=== PATIENT | male | born 1960 | race Caucasian/White ===

== ENCOUNTER → 2017-11-10 | Outpatient (CLI) | payer MEDICARE ==
[~2017-11-10] MED LIST: ATORVASTATIN CA10 MG PO; LEVOTHYROXINE100 MC1 PO; LEVOTHYROXINE100 MCG PO
--- NOTE | 2017-11-10 14:38 | Diagnostic Imaging Report ---
PROCEDURE:US RETROPERITONEAL ( KIDNEY ). COMPARISON:CT abdomen pelvis 05/08/2016. INDICATIONS:uti/ gross hematuria TECHNIQUE: Rinaldi-scale and color sonographic images of the bilateral kidneys and bladder where obtained in transverse and longitudinal planes. FINDINGS: RIGHT KIDNEY: 9.5 x 4.7 x 3.7 cm, cortex 1.6 cm Cysts: None. Solid masses: None. Stones: None. Hydronephrosis: Mild pelviectasis. Echogenicity: Normal. LEFT KIDNEY: 9.8 x 5.0 x 3.7 cm, cortex 1.4 cm Cysts: None. Solid masses: None. Stones: None. Hydronephrosis: Mild pelviectasis. Echogenicity: Normal. Bladder: Distended. Otherwise normal. Bilateral ureteral jets are not visualized. Prostate: 3.4 x 2.4 x 3.1 cm. 13 mL. CONCLUSION: Mild bilateral renal pelviectasis. Otherwise unremarkable kidneys. Dictated by: Ricki Cifuentes M.D. on 11/10/2017 at 14:42 Electronically approved by: Ricki Cifuentes M.D. on 11/10/2017 at 14:42
== END ==
LOC: US 12:07
PROVIDERS: ATTEND Urology
DX: N39.0 Urinary tract infection, site not specified (principal); R31.0 Gross hematuria
CPT/HCPCS: 76770

== ENCOUNTER → 2018-09-24 | Outpatient (CLI) | payer MEDICARE ==
[~2018-09-24] MED LIST changes: +IOPAMIDOL 370 MG/ML 200 ML INFUS..BTL INJ ONE; +SODIUM CHLORIDE 0.9% 50ML 50 ML ONE
--- NOTE | 2018-09-24 16:33 | Diagnostic Imaging Report ---
EXAM: CT Abdomen WITH contrast INDICATION: Abnormal LFTs. COMPARISON: Report from CT pelvis dated 03/02/2016, although the images are not available for review. TECHNIQUE: Abdomen was scanned utilizing a multidetector helical scanner from the lung base to the iliac crest after administration of IV contrast. Coronal and sagittal reformations were obtained. Routine protocol was performed. Scan was performed when during portal venous phase. IV CONTRAST: 100 cc of Isovue-370. ORAL CONTRAST: Water RADIATION DOSE: Total DLP: 440.6 mGy*cm Dose modulation, iterative reconstruction, and/or weight based adjustment of the mA/kV was utilized to reduce the radiation dose to as low as reasonably achievable. COMPLICATIONS: None FINDINGS: LINES and TUBES: None. LOWER THORAX: Small pericardial effusion. Bilateral fat-containing Bochdalek hernias. HEPATOBILIARY: Mild hepatic steatosis. The liver appears mildly atrophic without evidence of nodular contour. No focal hepatic lesions. No biliary ductal dilation. GALLBLADDER: No radio-opaque stones or sludge. No wall thickening. SPLEEN: No splenomegaly. PANCREAS: No focal masses or ductal dilatation. ADRENALS: No adrenal nodules KIDNEYS/URETERS: Kidneys enhance symmetrically. No hydronephrosis. No cystic or solid mass lesions. No stones. GI TRACT: No evidence of bowel obstruction. There is a colonic anastomosis in the left lower abdomen. Apparent mild thickening of the ascending colon, likely reflecting decompression. No significant surrounding inflammatory changes. LYMPH NODES: No lymphadenopathy. VESSELS: There is a prominent left splenorenal varix. The portal vein appears patent. PERITONEUM / RETROPERITONEUM: No free air or fluid. BONES: No acute osseous abnormality. Old healed left lateral seventh through ninth rib fractures. Degenerative changes of the lumbar spine. Posterior disc herniation at L1-L2 results in mild central canal narrowing. SOFT TISSUES: Postsurgical changes in the anterior midline abdomen. IMPRESSION: Hepatic steatosis. The liver appears mildly atrophic without evidence of nodular contour. Right upper quadrant ultrasound may be considered to evaluate for cirrhotic morphology. Left-sided splenorenal shunt. This may represent portal hypertension and can be correlated clinically. Apparent mild thickening of the ascending colon is likely secondary to decompression rather than colitis. Small pericardial effusion. Signed by: Dr. Lory Dove MD on 09/24/2018 4:29 PM
== END ==
LOC: CT 11:14
PROVIDERS: ATTEND Family Medicine
DX: R74.8 Abnormal levels of other serum enzymes (principal); R94.5 Abnormal results of liver function studies
CPT/HCPCS: 74160; Q9967

== ENCOUNTER 2018-10-07 08:55 | Inpatient (IN) | payer MEDICARE ==
[~2018-10-07] VITALS: Ht 154.9 cm; Wt 77.1 kg
[~2018-10-07 08:55] MED LIST changes: -IOPAMIDOL 370 MG/ML 200 ML INFUS..BTL INJ ONE; -SODIUM CHLORIDE 0.9% 50ML 50 ML ONE
--- OUTSIDE RECORDS SUMMARY | 2018-10-07 09:06 | XMS REPORT ---
Author [facility] Address Unknown Phone Unavailable Care Team Providers Care Outbound Sales Consultant Name Role Phone Milad BOBBY Unavailable Unavailable HAMPEL, NEHEMIA Unavailable Unavailable Payers Payer Name Policy Type Policy Number Effective Date Expiration Date Problems This patient has no known problems. Allergies, Adverse Reactions, Alerts Allergy Name Allergy Type Status Severity Reaction(s) Onset Date Inactive Date Treating Clinician Comments gabapentin DA Active SV 2017-11-12 00:00:00 Medications This patient has no known medications. Results Test Description Test Time Test Comments Text Results Atomic Results Result Comments CT ABDOMEN W 2018-09-24 16:14:00 [place] [address] Patient Name: JUSTINO MATAMOROS MR #: [id number] : 1960 Age/Sex: 58/M Req #: [id number] Adm Physician: Ordered by: LEANDRO BOBBY MD Report #: [id number] Location: CT Room/Bed: Procedure: [id number] CT/CT ABDOMEN W Exam Date: 09/24/18 Exam Time: 1240 REPORT STATUS: Signed EXAM: CT Abdomen WITH contrast INDICATION: Abnormal L FTs. COMPARISON: Report from CT pelvis dated 03/02/2016, although the images are not available for review. TECHNIQUE: Abdomen was scanned utilizing a multidetector helical scanner from the lung base to the iliac crest after administration of IV contrast. Coronal and sagittal reformations were obtained. Routine protocol was performed. Scan was performed when during portal venous phase. IV CONTRAST: 100 cc of Isovue-370. ORAL CONTRAST: Water RADIATION DOSE: Total DLP: 440.6 mGy*cm Dose modulation, iterative reconstruction, and/or weight based adjustment of the mA/kV was utilized to reduce the radiation dose to as low as reasonably achievable. COMPLICATIONS: None FINDINGS: LINES and TUBES: None. LOWER THORAX: Small pericardial effusion. Bilateral fat-containing Bochdalek hernias. HEPATOBILIARY: Mild hepatic steatosis. The liver appears mildly atrophic without evidence of nodular contour. No focal hepatic lesions. No biliary ductal dilation. GALLBLADDER: No radio-opaque stones or sludge. No wall thickening. SPLEEN: No splenomegaly. PANCREAS: No focal masses or ductal dilatation. ADRENALS: No adrenal nodules KIDNEYS/URETERS: Kidneys enhance symmetrically. No hydronephrosis. No cystic or solid mass lesions. No stones. GI TRACT: No evidence of bowel obstruction. There is a colonic anastomosis in the left lower abdomen. Apparent mild thickening of the ascending colon, likely reflecting decompression. No significant surrounding i nflammatory changes. LYMPH NODES: No lymphadenopathy. VESSELS: There is a prominent left splenorenal varix. The portal vein appears patent. PERITONEUM / RETROPERITONEUM: No free air or fluid. BONES: No acute osseous abnormality. Old healed left lateral seventh through ninth rib fractures. Degenerative changes of the lumbar spine. Posterior disc herniation at L1-L2 results in mild central canal narrowing. SOFT TISSUES: Postsurgical changes in the anterior midline abdomen. IMPRESSION: Hepatic steatosis. The liver appears mildly atrophic without evidence of nodular contour. Right upper quadrant ultrasound may be considered to evaluate for cirrhotic morphology. Left-sided splenorenal shunt. This may represent portal hypertension and can be correlated clinically. Apparent mild thickening of the ascending colon is likely secondary to decompression rather than colitis. Small pericardial effusion. Signed by: Dr. Hermann Jara MD on 09/24/2018 4:29 PM Dictated By: HERMANN JARA MD 162 Transcribed By: STEPHANIE on 09/24/181628 COPY TO: LEANDRO BOBBY MD URINALYSIS COMPLETE 2018-08-23 20:47:00 UA COLOR (test code=COLU) YELLOW YELLOW UA APPEARANCE (test code=APPU) CLEAR CLEAR UA GLUCOSE DIPSTICK (test code=DGLUU) NORMAL mg/dL NEGATIVE UA BILIRUBIN DIPSTICK (test code=BILU) NEGATIVE mg/dL NEGATIVE UA KETONE DIPSTICK (test code=KETU) neg mg/dL NEGATIVE UA SPECIFIC GRAVITY (test code=SGU) 1.015 1.001-1.035 UA BLOOD DIPSTICK (test code=ALEJANDRINA) 10 (Trace) Orion/uL NEGATIVE UA PH DIPSTICK (test code=TABATHA) 6.5 5.0-8.0 UA PROTEIN DIPSTICK (test code=PROU) neg mg/dL Neg-15 UA UROBILINIOGEN DIPSTICK (test code=URO) norm mg/dL 0.0-0.2 UA NITRITE DIPSTICK (test code=LOUISA) NEGATIVE NEGATIVE UA LEUKOCYTE ESTERASE DIPSTICK (test code=LEUU) NEGATIVE uL NEGATIVE UA WBC (test code=WBCU) NONE SEEN per HPF 0-5 IN SOME URINARY TRACT INFECTIONS THERE MAY NOT BE ENOUGHWBCs IN THE URINE TO TRIGGER AN AUTOMATIC (REFLEX) URINECULTURE. A SEPERATE ORDER FOR URINE CULTURE IS RECOMMENDEDIF THERE IS STRONG SUPPORT FOR A URINARY TRACT INFECTIONCLINICALLY. UA RBC (test code=RBCU) 0-2 per HPF 0-5 UA EPITHELIAL CELLS (test code=EPIU) Rare (0-1/hpf) per HPF Few UA BACTERIA (test code=BACU) TRACE per HPF NONE Urine Source? Clean CatchDRUGS OF ABUSE SCREEN [id number] 20:47:00* Test Item Value Reference Range Comments URN COCAINE (test code=COCAURN) NEGATIVE NEGATIVE URN CANNABINOIDS (test code=CANNABURN) NEGATIVE NEGATIVE URN AMPHETAMINE (test code=AMPHETURN) NEGATIVE NEGATIVE URN BARBITURATE (test code=BARBITURN) NEGATIVE NEGATIVE URN BENZODIAZEPINE (test code=BENZOURN) NEGATIVE NEGATIVE URN OPIATES (test code=OPIATURN) NEGATIVE NEGATIVE URN PHENCYCLIDINE (PCP) (test code=PHENCURN) NEGATIVE NEGATIVE Urine Source? Clean CatchURINALYSIS [id number] 20:44:00* Test Item Value Reference Range Comments UA COLOR (test code=COLU) YELLOW YELLOW UA APPEARANCE (test code=APPU) CLEAR CLEAR UA GLUCOSE DIPSTICK (test code=DGLUU) NORMAL mg/dL NEGATIVE UA BILIRUBIN DIPSTICK (test code=BILU) NEGATIVE mg/dL NEGATIVE UA KETONE DIPSTICK (test code=KETU) neg mg/dL NEGATIVE UA SPECIFIC GRAVITY (test code=SGU) 1.015 1.001-1.035 UA BLOOD DIPSTICK (test code=ALEJANDRINA) 10 (Trace) Orion/uL NEGATIVE UA PH DIPSTICK (test code=TABATHA) 6.5 5.0-8.0 UA PROTEIN DIPSTICK (test code=PROU) neg mg/dL Neg-15 UA UROBILINIOGEN DIPSTICK (test code=URO) norm mg/dL 0.0-0.2 UA NITRITE DIPSTICK (test code=LOUISA) NEGATIVE NEGATIVE UA LEUKOCYTE ESTERASE DIPSTICK (test code=LEUU) NEGATIVE uL NEGATIVE UA WBC (test code=WBCU) NONE SEEN per HPF 0-5 IN SOME URINARY TRACT INFECTIONS THERE MAY NOT BE ENOUGHWBCs IN THE URINE TO TRIGGER AN AUTOMATIC (REFLEX) URINECULTURE. A SEPERATE ORDER FOR URINE CULTURE IS RECOMMENDEDIF THERE IS STRONG SUPPORT FOR A URINARY TRACT INFECTIONCLINICALLY. UA RBC (test code=RBCU) 0-2 per HPF 0-5 UA EPITHELIAL CELLS (test code=EPIU) Rare (0-1/hpf) per HPF Few UA BACTERIA (test code=BACU) TRACE per HPF NONE Urine Source? Clean CatchDRUGS OF ABUSE SCREEN [id number] 20:44:00* Test Item Value Reference Range Comments URN COCAINE (test code=COCAURN) NEGATIVE URN CANNABINOIDS (test code=CANNABURN) NEGATIVE URN AMPHETAMINE (test code=AMPHETURN) NEGATIVE URN BARBITURATE (test code=BARBITURN) NEGATIVE URN BENZODIAZEPINE (test code=BENZOURN) NEGATIVE URN OPIATES (test code=OPIATURN) NEGATIVE URN PHENCYCLIDINE (PCP) (test code=PHENCURN) NEGATIVE Urine Source? Clean Catch- CT HEAD/BRAIN W/O [id number] 20:22:00 Name: JUSTINO MATAMOROS [facility] [place] : 1960 Age/S: 58 / M [address] [facility] Unit #: [id number] Loc: [place] [address] Phys: Sil De La O MD Acct: [id number] Di s Date: Status: REG ER PHONE #: Exam Date: 08/23/2018 193 FAX #: Reason: altered mentation EXAMS: CPT CODE: [id number] CT HEAD/BRAIN W/O CONT [id number] REASON FOR EXAM: altered mentation EXAM ORDER DATE: 08/23/2018 6:48 PM Ordering MOnesimo: Ruth De La O MD PROCEDURE: - CT HEAD/BRAIN W/O CONT COMPARISON: 12/18/2015 FINDINGS: CT images of the brain were obtained without IV contrast. Dose modulation, iterative r econstruction, and/or weight based adjustment of the MA/KV was utilized to reduce the radiation dose to as low as reasonably achievable. Mild patchy low densities appearance of the paraventricular region noted consistent with nonspecific white matter disease. The mckeon-white matter delineation is unremarkable. The ventricles, cisterns, and sulci are mild ly prominent. There is no evidence of hemorrhage, mass, mass effect. Ther e is no evidence of acute infarct. The calvarium is intact. IMPRESSION: Nonspecific deep white matter disease. Mild advanced gene ralized atrophy for age. 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 No acute findings Dania ctronically Signed by Radha Meneses on 08/23/2018 at 2021 Reported and signed by: Chavo Meneses M.D. CC: Ruth De La O MD; Leandro Gomez MD Technologist:JULIA OSPINA RT(R),RDMS,CT CTDI: DLP: Trnscb Date/Time: 08/23/2018 (2021) RobVTL Orig Print D/T: S: 08/23/2018 (2024) CTDI: DLP: PAGE 1 Signed Report - XR CHEST 1 [id number] 20:06:00 Name: JUSTINO MATAMOROS [facility] : 1960 Age/S:58 /M [address] [facility] Unit#:[id number] Loc: [place] [address] Phys: Pete Torres MD Dis Date: PHONE #: [phone] Status: REG ER FAX #: [phone] Exam Date: 08/23/2018 Reason: Altered mental status EXAMS: CPT CODE: [id number] XR CHEST 1 V [id number] REASON FOR EXAM: Altered mental status EXAM ORDER DATE: 08/23/2018 7:37 PM Ordering M.Dean: Pete Torres MD PROCEDURE: - XR CHEST 1 V COMPARISON: FINDINGS: Portable AP frontal view of the chest obtained at 7:44 PM shows patchy airspace opacity at the left base. There is no evidence of effusion. The heart size is minimally enlarged. Pulmonary vasculatures are minimally congested. IMPRESSION: Patchy atelectasis of the left base at 2005 Reported and signed by: Chavo Meneses M.D. CC: Pete Torres MD; Leandro Bobby MD Technologist: JULIA OSPINA RT(R),RDMS,CT Trnscrpt Data: 08/23/2018 (2005) tFINESSEVTL Orig Print D/T: S: 08/23/2018 (2008) PAGE 1 Signed Report COMPREHENSIVE METABOLIC [id number] 19:23:00* Test Item Value Reference Range Comments SODIUM (test code=NA) 148 mmol/L 135-148 POTASSIUM (test code=K) 4.3 mmol/L 3.5-5.1 CHLORIDE (test code=CL) 109 mmol/L 101-109 CARBON DIOXIDE (test code=CO2) 29.5 mmol/L 21-32 ANION GAP (test code=GAP) 14 mmol/L 10-20 GLUCOSE (test code=GLU) 102 mg/dL 74-106 BLOOD UREA NITROGEN (test code=BUN) 14 mg/dL 3-21 CREATININE (test code=CREAT) 1.26 mg/dL 0.55-1.3 BUN/CREATININE RATIO (test code=BUN/CREA) 11.1 10-20 TOTAL PROTEIN (test code=PROT) 7.0 g/dL 6.5-8.4 ALBUMIN (test code=ALB) 2.9 g/dL 3.4-4.8 GLOBULIN (test code=GLOB) 4.1 G/DL 1-10 ALBUMIN/GLOBULIN RATIO (test code=A/G) 0.7 RATIO 0.75-1.50 CALCIUM (test code=CA) 8.4 mg/dL 8.4-10.2 BILIRUBIN TOTAL (test code=BILT) 0.60 mg/dL 0.0-1.0 SGOT/AST (test code=AST) 40 U/L 6-32 SGPT/ALT (test code=ALT) 33 U/L 12-78 Note: Change in REFERENCE RANGE due to new reagent method. ALKALINE PHOSPHATASE TOTAL (test code=ALKP) 140 U/L 38-126 [id number] 19:23:00* Test Item Value Reference Range Comments MAGNESIUM (test code=MAG) 2.2 mg/dL 1.6-2.3 [id number] 19:23:00* Test Item Value Reference Range Comments ALCOHOL (test code=ALC) 3 mg/dL 0.0-3.0 INTERPRETIVE DATA NOTE: POSITIVE SCREENING RESULTS SHOULD BE CONSIDERED PRESUMPTIVE.WHEN COLLECTED FOR MEDICAL PURPOSES ONLY. SPECIMEN WILL NOTBE COLLECTED BY CHAIN OF CUSTODY.IF A CONFIRMATION OF POSITIVE RESULTS IS DESIRED, ACONFIRMATION TEST MUST BE REQUESTED BY THE PHYSICIAN AT ANADDITIONAL CHARGE TO THE PATIENT. COMPREHENSIVE METABOLIC [id number] 19:20:00* Test Item Value Reference Range Comments SODIUM (test code=NA) 148 mmol/L 135-148 POTASSIUM (test code=K) 4.3 mmol/L 3.5-5.1 CHLORIDE (test code=CL) 109 mmol/L 101-109 CARBON DIOXIDE (test code=CO2) 29.5 mmol/L 21-32 ANION GAP (test code=GAP) 14 mmol/L 10-20 GLUCOSE (test code=GLU) 102 mg/dL 74-106 BLOOD UREA NITROGEN (test code=BUN) 14 mg/dL 3-21 CREATININE (test code=CREAT) 1.26 mg/dL 0.55-1.3 BUN/CREATININE RATIO (test code=BUN/CREA) 11.1 10-20 TOTAL PROTEIN (test code=PROT) gram/dL 6.4-8.2 ALBUMIN (test code=ALB) g/dL 3.4-5.0 GLOBULIN (test code=GLOB) g/dL 2.7-4.2 ALBUMIN/GLOBULIN RATIO (test code=A/G) 0.75-1.50 CALCIUM (test code=CA) 8.4 mg/dL 8.4-10.2 BILIRUBIN TOTAL (test code=BILT) mg/dL 0.2-1.2 SGOT/AST (test code=AST) IUnit/L 15-37 SGPT/ALT (test code=ALT) U/L 10-69 ALKALINE PHOSPHATASE TOTAL (test code=ALKP) IUnit/L 45-117 [id number] 19:20:00* Test Item Value Reference Range Comments MAGNESIUM (test code=MAG) mg/dL 1.8-2.4 [id number] 19:20:00* Test Item Value Reference Range Comments ALCOHOL (test code=ALC) mg/dL 0.0-3.0 CBC W/AUTO [id number] 19:08:00* Test Item Value Reference Range Comments WHITE BLOOD CELL (test code=WBC) 7.6 K/mm3 4.5-12.5 RED BLOOD CELL (test code=RBC) 4.94 mill/mm3 4.0-5.8 HEMOGLOBIN (test code=HGB) 15.9 gram/dL 13.0-17.5 HEMATOCRIT (test code=HCT) 46.3 % 42.0-52.0 MEAN CELL VOLUME (test code=MCV) 93.7 fL 80-98 MEAN CELL HGB (test code=MCH) 32.2 picogram 27.0-33.0 MEAN CELL HGB CONCETRATION (test code=MCHC) 34.3 gram/dL 33.0-36.0 RED CELL DISTRIBUTION WIDTH (test code=RDW) 14.9 % 11.6-16.2 RED CELL DISTRIBUTION WIDTH SD (test code=RDW-SD) 50.1 fL 39.2-49.5 PLATELET COUNT (test code=PLT) 147 K/mm3 150-450 MEAN PLATELET VOLUME (test code=MPV) 9.8 fL 6.7-11.0 NEUTROPHIL % (test code=NT%) 59.1 % 39.0-69.0 LYMPHOCYTE % (test code=LY%) 30.4 % 25.0-55.0 MONOCYTE % (test code=MO%) 8.6 % 0.0-10.0 EOSINOPHIL % (test code=EO%) 0.7 % 0.0-5.0 BASOPHIL % (test code=BA%) 1.2 % 0.0-1.0 NEUTROPHIL # (test code=NT#) 4.48 K/mm3 1.8-7.7 LYMPHOCYTE # (test code=LY#) 2.30 K/mm3 1.0-5.0 MONOCYTE # (test code=MO#) 0.65 K/mm3 0-0.8 EOSINOPHIL # (test code=EO#) 0.05 K/mm3 0.0-0.5 BASOPHIL # (test code=BA#) 0.09 K/mm3 0.0-0.2 MANUAL DIFF REQUIRED (test code=MDIFF) NO US RENAL RETROPERITONEAL COMP [place] [address] Patient Name: JUSTINO MATAMOROS MR #: [id number] : 1960 Age/Sex: 57/M Req #: [id number] Adm Physician: Ordered by: PANKAJ SARGENT MD Report #: [id number] Location: US Room/Bed: Procedure: [id number] US/US RENAL RETROPERITONEAL CO MP Exam Date: Exam Time: REPORT STATUS: Sign ed PROCEDURE: US RETROPERITONEAL ( KIDNEY ). COMPARISON: CT abdomen pel vis 05/08/2016. INDICATIONS: uti/ gross hematuria TECHNIQUE: Rinaldi-scale an d color sonographic images of the bilateral kidneys and bladder where obtaine d in transverse and longitudinal planes. FINDINGS: RIGHT KIDNE Y: 9.5 x 4.7 x 3.7 cm, cortex 1.6 cm Cysts: None. Solid masses: None. Ston es: None. Hydronephrosis: Mild pelviectasis. Echogenicity: Normal. LEF T KIDNEY: 9.8 x 5.0 x 3.7 cm, cortex 1.4 cm Cysts: None. Solid masses: None . Stones: None. Hydronephrosis: Mild pelviectasis. Echogenicity: Normal. Bladder: Distended. Otherwise normal. Bilateral ureteral jets are not visualized. Prostate: 3.4 x 2.4 x 3.1 cm. 13 mL. CONCLUSION: M ild bilateral renal pelviectasis. Otherwise unremarkable kidneys. Dictate d by: Ricki Osborne M.D. on 11/10/2017 at 14:42 Electronically approved by: Brody Osborne M.D. on 11/10/2017 at 14:42 Dictated By: RICKI OSBORNE MD Elect ronically Signed By: RICKI OSBORNE MD on 11/10/17 1442 Transcribed By: ADORE on 11/10 1442 COPY TO: PANKAJ SARGENT MD
--- OUTSIDE RECORDS SUMMARY | 2018-10-07 09:06 | XMS REPORT | Continuity of Care Document ---
Author Author [facility] Interface Address Unknown Phone Unavailable Problems Problem Status Onset Date Classification Date Reported Comments Source Medications Medication Details Route Status Patient Instructions Ordering Provider Order Date Source Allergies, Adverse Reactions, Alerts Substance Category Reaction Severity Reaction type Status Date Reported Comments Source Immunizations Immunization Date Given Site Status Last Updated Comments Source Results Order Name Results Value Reference Range Date Interpretation Comments Source Vital Signs Vital Sign Value Date Comments Source Encounters Location Location Details Encounter Type Encounter Number Reason For Visit Attending Provider ADM Date DC Date Status Source Outpatient [id number] [facility] 10/22/2016 Active [facility] [place] Procedures Procedure Code Date Perfomer Comments Source
[2018-10-07] MEDS ORDERED: CEFAZOLIN SOD 1 GM/NS 50ML 50 ML IV ONE (09:19)
[2018-10-07] MEDS ORDERED: DONEPEZIL HCL10 MG PO (09:32)
[2018-10-07] MEDS ORDERED: BUPIVACAINE HCL 0.5% INJ 30 ML VIAL INJ ONE (10:27)
[2018-10-07] MEDS ORDERED: IOPAMIDOL 610MG/1ML 300 MG/ML VIAL IV ONE (10:27)
[2018-10-07] MEDS ORDERED: BACITRACIN ZINC 15 GM OINT ONE (12:32)
[2018-10-07] MEDS: D5.45%NS/KCL 20MEQ 1,000 ML IV SCH ×2 (12:46→20:46)
[2018-10-07] MEDS ORDERED: DIPHENHYDRAMINE HCL 25 MG CAP PO PRN (13:00)
[2018-10-07] MEDS ORDERED: MORPHINE SULFATE 1 MG/ML 30ML PCA IV PRN (13:00)
[2018-10-07] MEDS ORDERED: NALOXONE HCL INJ 0.4 MG/ML AMP IV PRN (13:00)
[2018-10-07] MEDS ORDERED: ONDANSETRON HCL INJ 2MG/ML 2ML 2 MG/ML VIAL IV PRN (13:00)
[2018-10-07] MEDS ORDERED: MORPHINE SULFATE 1 MG/ML 30ML PCA ONE (13:43)
[2018-10-07] MEDS ORDERED: HYDROMORPHONE 2MG/ML 2 MG/ML ML ONE (14:11)
[2018-10-07] MEDS ORDERED: FENTANYL CITRATE/PF 100MCG/2 ML INJ ONE ×2 (14:41→19:14)
[2018-10-07 17:54] VITALS: BP 115/74
[2018-10-07] MEDS: CEFAZOLIN SOD 1 GM/NS 50ML 50 ML IV SCH (18:51)
[2018-10-07] MEDS: DOCUSATE SODIUM 100 MG CAP PO SCH (18:51)
[2018-10-07 19:27] VITALS: BP 115/74
[2018-10-07 19:34] VITALS: BP 115/74
[2018-10-07 20:00] VITALS: BP 158/65
--- NOTE | 2018-10-07 23:00 | NUR ---
Penile/scrotum dressing was noted to be saturated. Old dressing removed and new dressing was placed.
[2018-10-08] VITALS (10 sets, daily range): BP systolic 100–123; BP diastolic 51–74
--- NOTE | 2018-10-08 01:37 | Operative Report ---
DATE OF PROCEDURE: 10/07/2018 SURGEON: Mj Glover MD SERVICE: Urology. DIAGNOSES: 1. Urethral stricture. 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 3. Down syndrome. 4. Urinary tract infection. OPERATIONS PERFORMED: 1. Retrograde urethrogram under fluoroscopic control. 2. Cystoscopy and urethral dilation. 3. Bilateral retrograde pyelograms under fluoroscopic control. All this is not related to the diagnosis of the buried penis. 4. Interpretation of x-ray, radiologist was present. 5. Supervision of fluoroscopy, radiologist was present. 6. Complete reconstruction of the penile skin involving the complete dissection and removal of old scar tissue surrounding the penis. Dissecting was done all the way up to the suspensory ligament of the penis. Following this, flaps of scrotal tissue were used to create the necessary skin to cover the penis completely. DESK CLERK: Dr. Diogo Glover. TYPE OF ANESTHESIA: General. CLINICAL INDICATION: This is a 58-year-old Down syndrome patient, who had a completely buried penis following previous dissection. The patient was brought for reconstruction of the penile skin using grafts as well as treatment of the urethral stricture. Procedure was discussed with his parents. Potential benefits and complications were discussed, explained and accepted. Family are aware that the patient will be admitted following the procedure. DESCRIPTION OF PROCEDURE AND FINDINGS: After appropriate level of anesthesia was achieved, the patient was placed in lithotomy position, prepped and draped in a sterile fashion. A 16-Bahraini Landa catheter was inserted through the tip of the penis and retrograde urethrogram was demonstrating some narrow segment. Urethra was then dilated to 24-Bahraini. Cystoscopy was done. Urethra now is patent. Bladder mucosa is minimally trabeculated. Both ureteral orifices were in normal position. Cone-tip catheter was used. Retrograde pyelogram demonstrating a completely normal upper tract bilaterally. Following this, the patient was re-prepped and draped. The Landa catheter was inserted into the bladder with a 16-Bahraini, 10 cc. Skin flaps were then marked with a marking pen on the wall of the scrotum. The head of the penis which is quite small was controlled by putting the 3-0 silk suture through the glans for traction. The glans penis of note is extremely small, and also adherent to the surrounding tissue. The head of the penis was then dissected free and the premarked flaps were incised. Following this, old adhesion tissue was attached to the shaft of the penis were carefully coagulated and dissected completely free. The penis was then completely stripped for any adhesion to it and this was extended all the way to the symphysis pubis. Following this, the flaps of skin that were prepared for the covering of the penis where it was sutured using 4-0 interrupted chromic catgut. The midline was sutured 1st, any excess skin and any corners of skin were excised. The skin was completely surrounded loosely and nicely and the shaft of the penis. The base of the penis was reattached to the skin with additional stitch of 3-0 chromic catgut. A stitch of 3-0 chromic catgut was also used to anchor the base of the penis to the reconstructed skin. The line of incision of the skin was closed to the midline in the ventral area. Interrupted sutures of vertical mattresses were used in between then the running suture of 4-0 chromic catgut. A quarter-inch [place] drain was brought through a separate stab incision. Near the right-side of the scrotum and advanced along the reconstructive skin of the penis. After completing the suturing, very nicely recreated penile skin was present. The bacitracin ointment was applied on all the incisions, the vertical incision and the scrotum was closed with 3-0 chromic interrupted and running sutures. After putting the bacitracin ointment, the Telfa was placed on the sutures and then dressing was applied. Coban dressing was then applied to the penis and Tegaderm to the rest of the incisions. Mesh underwear was placed and the pads were added to the perineal area. The patient tolerated the procedure very well. Estimated blood loss practically none. He was transferred in satisfactory condition to recovery room, and will be admitted for further treatment. MD RAFI Quintero/MODL /[id number]
[2018-10-08] MEDS: CEFAZOLIN SOD 1 GM/NS 50ML 50 ML IV SCH ×3 (02:43→18:53)
[2018-10-08] MEDS: D5.45%NS/KCL 20MEQ 1,000 ML IV SCH ×3 (04:46→20:40)
--- NOTE | 2018-10-08 05:08 | Consultation ---
DATE OF CONSULTATION: REASON FOR CONSULTATION: Postop medical management. HISTORY OF PRESENT ILLNESS: This patient is a 58-year-old gentleman with history of Down syndrome, who is status post venous repair, who has some evidence of abdominal pain, but otherwise appears to be doing well. PAST MEDICAL HISTORY: Down syndrome, hypothyroidism, cognitive dysfunction, and hyperlipidemia. MEDICATIONS: See MAR. ALLERGIES: NONE. SOCIAL HISTORY: Nonsmoker and nondrinker. FAMILY HISTORY: Hypertension. PHYSICAL EXAMINATION: VITAL SIGNS: Temperature 97.6, pulse 86, blood pressure 123/74, and sats 95%. GENERAL: He is in no apparent distress, lying in bed. NECK: Supple. CARDIOVASCULAR: Regular rate and rhythm. LUNGS: Clear to auscultation bilaterally. ABDOMEN: Good bowel sounds. Soft and nontender. EXTREMITIES: No clubbing or cyanosis. NEUROLOGICAL: Nonfocal. ASSESSMENT AND PLAN: 1. Abdominal pain. We will continue with his PUBLIC [employer]ATIONS pump. 2. Hypothyroidism. We will continue with his medication. 3. Hyperlipidemia. We will continue with his medication. 4. Cognitive dysfunction. We will also continue with his Aricept at discharge. Please see hospital chart for full details. MD RAQUEL Agarwal/ZAINAB /[id number]
[2018-10-08 05:53] LABS: BASOPHILS % 0.2 % (0.0-1.0); EOSINOPHILS # (AUTO) 0.1 (0.0-0.4); EOSINOPHILS % 1.5 % (0.0-6.0); HEMATOCRIT 38.9 % (38.2-49.6); HEMOGLOBIN 13.5 g/dL (14.0-18.0); LYMPHOCYTES # (AUTO) 1.4 (1.0-3.2); LYMPHOCYTES % 15.2 % (18.0-39.1); MEAN CORPUSCULAR HEMOGLOBIN 32.1 pg (28-32); MEAN CORPUSCULAR HGB CONC 34.7 g/dL (31-35); MEAN CORPUSCULAR VOLUME 92.4 fL (81-99); MONOCYTES # (AUTO) 0.6 (0.2-0.8); NEUTROPHILS % 76.8 % (38.7-80.0); PLATELET COUNT 151 x10e3/uL (140-360); RED BLOOD COUNT 4.21 x10e6/uL (4.3-5.7); RED CELL DISTRIBUTION WIDTH 14.1 % (11.7-14.4)
--- NOTE | 2018-10-08 06:00 | NUR ---
Penile/scrotum dressing was noted to be saturated. Old dressing was removed, sarina drain and stitches are in place, covered incision site with new 4x4 gauge and secured with tape.
[2018-10-08 06:13] LABS: ANION GAP 10.1 mmol/L (8-16); BLOOD UREA NITROGEN 11 mg/dL (7-26); BUN/CREATININE RATIO 14 (6-25); CALCIUM 8.7 mg/dL (8.4-10.2); CARBON DIOXIDE 28 mmol/L (22-29); CHLORIDE 105 mmol/L (98-107); CREATININE, SERUM 0.78 mg/dL (0.72-1.25); EST GLOMERULAR FILTRATION RATE > 60 ML/MIN (60-); GLUCOSE 92 mg/dL (74-118); POTASSIUM 4.1 mmol/L (3.5-5.1); SODIUM 139 mmol/L (136-145)
[2018-10-08] MEDS ORDERED: ACETAMINOPHEN/CODEINE 300MG - 30MG TAB PO PRN (09:15)
--- NOTE | 2018-10-08 09:20 | NUR ---
New dressing placed at this timer as per Dr. Glover orders. 4x4 gauze placed underneath scrotum, and mesh underwear applied. Old dressing and tape removed. [employer] DC'd per MD orders.
[2018-10-08] MEDS: LEVOTHYROXINE SODIUM 100 MCG TAB PO SCH (09:30)
[2018-10-08] MEDS: ATORVASTATIN 10 MG TAB PO SCH (09:30)
[2018-10-08] MEDS: DOCUSATE SODIUM 100 MG CAP PO SCH ×2 (09:30→18:14)
--- NOTE | 2018-10-08 11:47 | NUR ---
CASE MANAGEMENT ASSESSMENT Swedish Masseuse to bedside to discuss plan of care with patient/family. CM/SW role and care transitions discussed. Anticipated discharge plan discussed along with duration of care. CM/SW discussed patients right to make decisions in care. CM/SW work hours given. Spoke to pt's sister Catherine at bedside. Patient lives: with his sister Catherine Rodriguez Admit/Transfer: from PACU Hospital/ER visits since last admit: 1 visit to urgent care for UTI; was discharged from there with abx POA/Emergency contact: Catherine Rodriguez [phone] (home), (cell) Current/Previous Home Health: previously had [facility]. none currently PCP/Follow-up Care: will follow up with Dr. Glover as instructed on discharge. Current/Previous DME: none Medications (referring to index hospitalization or the first time you were in the hospital) a. Were changes made in your medications when you were in the hospital on [date of index hospitalization]? n/a b. Did you understand the changes? n/a c. Were you able to obtain your new medications right away? n/a d. Were you able to take your medications like the doctor wanted you to? n/a e. Did the hospital give you an accurate, easy to understand list of medications when you left? n/a Scale of 1-10 how comfortable does patient feel with disease management in outpatient settin Other Services: none Employment Status: disabled Areas of Concerns: s/p surgery Referral Needs: none Education Needs: post operative care, medical management IMM/RODRIGUEZ given and signed (if applicable): not at this time Goal for discharge: home; sister will take pt home. CM/SW left business card at the bedside with contact information. Name and number was also written on the patients whiteboard. Patient verbalized understanding of discussion. CM will follow-up with ongoing discharge and transition of care needs.
--- NOTE | 2018-10-08 14:28 | NUR ---
WOUND CARE PUP SCREEN Rafael Score: 13 PUP: Moderate LOS: 13 hr Age: 58 VISCO Mattress HOB < 30 Degrees Patient Position: Back. Able to Turn Self. On SCREED OPERATOR pump. Active in bed. PATIENT VISIT / SKIN CHECK: No Pressure Ulcers Identified. S/p Surgical Intervention of Penis &Scrotum. RECOMMENDATION: - Continue Moderate PUP - Alternating Pressure Air Mattress and set to patient current weight - Bilateral Heel Protectors / Offload Heels with Pillows While in Bed - Turn and Reposition Every 2 Hours Addendum: 10/08/18 at 1429 by Raman Li RN Amended: Links added.
[2018-10-08] MEDS: ACETAMINOPHEN/CODEINE 300MG - 30MG TAB PO PRN (20:22)
[2018-10-09] VITALS (7 sets, daily range): BP systolic 90–138; BP diastolic 50–79
[2018-10-09] MEDS: CEFAZOLIN SOD 1 GM/NS 50ML 50 ML IV SCH ×4 (01:42→17:01)
[2018-10-09] MEDS: ACETAMINOPHEN/CODEINE 300MG - 30MG TAB PO PRN ×2 (01:43→07:42)
[2018-10-09 06:22] LABS: ANION GAP 7.8 mmol/L (8-16); BLOOD UREA NITROGEN 11 mg/dL (7-26); BUN/CREATININE RATIO 15 (6-25); CARBON DIOXIDE 28 mmol/L (22-29); CHLORIDE 106 mmol/L (98-107); CREATININE, SERUM 0.75 mg/dL (0.72-1.25); EST GLOMERULAR FILTRATION RATE > 60 ML/MIN (60-); GLUCOSE 95 mg/dL (74-118); POTASSIUM 3.8 mmol/L (3.5-5.1); SODIUM 138 mmol/L (136-145)
--- NOTE | 2018-10-09 07:10 | NUR ---
received pt lying in bed with eyes pen and TV on. denies pain, sob at this time. call light within reach and instructed to call for assistance.
[2018-10-09] MEDS: D5.45%NS/KCL 20MEQ 1,000 ML IV SCH ×3 (07:43→19:27)
[2018-10-09 08:12] LABS: BASOPHILS # (AUTO) 0.1 (0.0-0.1); BASOPHILS % 1.3 % (0.0-1.0); EOSINOPHILS # (AUTO) 0.1 (0.0-0.4); EOSINOPHILS % 1.3 % (0.0-6.0); HEMATOCRIT 39.1 % (38.2-49.6); HEMOGLOBIN 13.3 g/dL (14.0-18.0); LYMPHOCYTES # (AUTO) 1.3 (1.0-3.2); MEAN CORPUSCULAR HEMOGLOBIN 31.9 pg (28-32); MEAN CORPUSCULAR VOLUME 93.8 fL (81-99); MONOCYTES # (AUTO) 0.5 (0.2-0.8); MONOCYTES % 8.9 % (4.4-11.3); NEUTROPHILS # (AUTO) 3.5 (2.1-6.9); NEUTROPHILS % 64.3 % (38.7-80.0); PLATELET COUNT 125 x10e3/uL (140-360); RED BLOOD COUNT 4.17 x10e6/uL (4.3-5.7); RED CELL DISTRIBUTION WIDTH 14.6 % (11.7-14.4)
[2018-10-09] MEDS: LEVOTHYROXINE SODIUM 100 MCG TAB PO SCH (08:37)
[2018-10-09] MEDS: DOCUSATE SODIUM 100 MG CAP PO SCH ×2 (08:37→16:22)
[2018-10-09] MEDS: ATORVASTATIN 10 MG TAB PO SCH (08:37)
--- NOTE | 2018-10-09 12:54 | NUR ---
patient continues to refuse SCDs. agreed to get out of bed and into chair. family at bedside. call light within reach.
--- NOTE | 2018-10-09 13:04 | NUR ---
PT WITH DOWNS SYNDROME AND DEMENTIA UNABLE TO SIGN HIS OWN CONSENTS IMM EXPLAINED TO SISTER AT BEDSIDE, SIGNED BY SISTER AND PLACED ON CHART COPY TO PT IN CARE TRANSITION FOLDER
[2018-10-09] MEDS ORDERED: ONDANSETRON HCL 4 MG ORAL DISINTEGRATING TAB PO PRN (15:15)
--- NOTE | 2018-10-09 16:16 | NUR ---
Met with pt and sister, Catherine Rodriguez (cell [phone], home [phone]) Patient lives with sister, and she is his primary caregiver. Confirmed info on demographic sheet. Discussed home health and sister agreed with this plan. Gave her a choice letter with 3 companies in network with insurance. She chose [facility] and signed choice letter. copy given to her and original placed on chart. Called [facility] to confirm they do go to [facility]. Faxed order and clinical [facility] office: [phone] fax: [phone]
--- NOTE | 2018-10-09 16:57 | NUR ---
patient able to ambulate to restroom with walker and min assist, requiring cueing to complete task. pleasant mood. when asked how he is doing he responds "Im doing ok." call light within reach. family at bedside.
--- NOTE | 2018-10-09 19:06 | NUR ---
bedside rounds done with oncoming RN, patient in recliner with TV on, eyes open and Resp even and unlabored. Nephew at bedside. call light within reach.
[2018-10-10] MEDS: ACETAMINOPHEN/CODEINE 300MG - 30MG TAB PO PRN ×4 (00:32→10:23)
--- NOTE | 2018-10-10 00:34 | NUR ---
CHANGED DRESSING TO SCROTUM PER MD ORDER.
[2018-10-10 00:40] VITALS: BP 118/56
[2018-10-10] MEDS: CEFAZOLIN SOD 1 GM/NS 50ML 50 ML IV SCH ×2 (01:16→08:12)
[2018-10-10 05:19] VITALS: BP 105/58
[2018-10-10] MEDS: D5.45%NS/KCL 20MEQ 1,000 ML IV SCH (05:53)
--- NOTE | 2018-10-10 07:00 | NUR ---
Rcvd patient in report this am. Patient is asleep in bed at this time. No s/s of distress noted.
[2018-10-10 07:07] LABS: BASOPHILS # (AUTO) 0.1 (0.0-0.1); BASOPHILS % 1.2 % (0.0-1.0); EOSINOPHILS # (AUTO) 0.1 (0.0-0.4); EOSINOPHILS % 1.8 % (0.0-6.0); HEMATOCRIT 40.8 % (38.2-49.6); LYMPHOCYTES # (AUTO) 1.5 (1.0-3.2); MEAN CORPUSCULAR HEMOGLOBIN 32.6 pg (28-32); MEAN CORPUSCULAR HGB CONC 34.3 g/dL (31-35); MEAN CORPUSCULAR VOLUME 94.9 fL (81-99); MONOCYTES # (AUTO) 0.5 (0.2-0.8); MONOCYTES % 9.3 % (4.4-11.3); NEUTROPHILS # (AUTO) 2.9 (2.1-6.9); NEUTROPHILS % 57.5 % (38.7-80.0); PLATELET COUNT 132 x10e3/uL (140-360); RED CELL DISTRIBUTION WIDTH 14.8 % (11.7-14.4)
[2018-10-10 07:39] LABS: BLOOD UREA NITROGEN 10 mg/dL (7-26); BUN/CREATININE RATIO 13 (6-25); CALCIUM 8.5 mg/dL (8.4-10.2); CARBON DIOXIDE 28 mmol/L (22-29); CHLORIDE 109 mmol/L (98-107); EST GLOMERULAR FILTRATION RATE > 60 ML/MIN (60-); GLUCOSE 92 mg/dL (74-118); SODIUM 143 mmol/L (136-145)
[2018-10-10] MEDS: ATORVASTATIN 10 MG TAB PO SCH (08:12)
[2018-10-10] MEDS: LEVOTHYROXINE SODIUM 100 MCG TAB PO SCH (08:12)
[2018-10-10] MEDS: DOCUSATE SODIUM 100 MG CAP PO SCH (08:12)
[2018-10-10 08:36] VITALS: BP 110/73
[2018-10-10 09:33] VITALS: BP 110/73
[2018-10-10] MEDS ORDERED: BACTRIM DS TAB1 EACH PO (09:42)
[2018-10-10] MEDS ORDERED: TYLENOL WITH C1 EACH PO (09:43)
--- NOTE | 2018-10-10 10:20 | NUR ---
Removed 20G IV from left hand. Pressure dressing applied
--- NOTE | 2018-10-10 10:37 | NUR ---
Patient discharged from facility to home. Patient assisted out via staff. Reviewed all discharge paperwork, follow up appts, and RX's given. Education provided on the peters care and changing from leg bag to gravity bag. MOther verbalized understanding and informed he had one before as well. Home health arranged. Phone number given as well
--- NOTE | 2018-10-11 06:44 | Discharge Summary ---
DISCHARGE DIAGNOSES: 1. Status post previous surgery with reconstruction. 2. Abdominal pain. 3. Hyperlipidemia. 4. Hypothyroidism. HISTORY OF PRESENT ILLNESS AND HOSPITAL COURSE: See hospital chart for full details. The patient is a 58-year-old gentleman with history of Down syndrome, who had previous surgery performed by Dr. Josie Glover due to anatomical changes. Postoperatively, the patient did very well, had minimal abdominal pain, was controlled with pain medication, initial ROPE TOW OPERATOR then p.r.n. medication. At the time of discharge, he was near at his baseline as far as ambulating in the ED and appeared to be doing very well, so once he was cleared by Urology, he was able to be discharged home with followup with Urology in 1 to 2 weeks and continuation of his home medications. Please see hospital chart for full details. MD RAQUEL Agarwal/ZAINAB /[id number] MTDD
== END 2018-10-10 10:35 | disposition home health service (06) | DRG 709 ==
LOC: OR 08:55 → PACU V 12:48 → MED/SURG 17:23 → UNDODISIN 10-10 10:35
PROVIDERS: ADMIT Internal Medicine; ATTEND Internal Medicine
PROC: 0VQS0ZZ Repair Penis, Open Approach (ICD-10-PCS; principal; 2018-10-10)
PROC: 0HXAXZZ Transfer Inguinal Skin, External Approach (ICD-10-PCS; 2018-10-10)
DX: N48.83 Acquired buried penis (principal); N39.0 Urinary tract infection, site not specified; N35.919 Unspecified urethral stricture, male, unspecified site; Q90.9 Down syndrome, unspecified; E03.9 Hypothyroidism, unspecified; E78.5 Hyperlipidemia, unspecified; F79 Unspecified intellectual disabilities; E66.9 Obesity, unspecified; Z68.32 Body mass index [BMI] 32.0-32.9, adult; R10.9 Unspecified abdominal pain; Q55.8 Other specified congenital malformations of male genital organs
CPT/HCPCS: 36415; 74420; 80048; 85025; 93005; 96361; J0690; J2270

== ENCOUNTER → 2018-12-08 | Outpatient (CLI) | payer MEDICARE ==
[~2018-12-08] MED LIST changes: +BACTRIM DS TAB1 EACH PO; +DONEPEZIL HCL10 MG PO; +IOPAMIDOL 370 MG/ML 200 ML INFUS..BTL INJ ONE; +TYLENOL WITH C1 EACH PO
--- NOTE | 2018-12-08 14:55 | Diagnostic Imaging Report ---
PROCEDURE: CT ABDOMEN WITH CONTRAST TECHNIQUE: The abdomen was scanned utilizing a multidetector helical scanner from the diaphragm to the iliac crest after the IV administration of 100 cc of Isovue 370. Coronal and sagittal multiplanar reformations were obtained. Technique modification was accomplished maintained the lowest dose possible to the patient. DLP: 370.44 mGy-cm COMPARISON: None. INDICATIONS: ELEVATED TRANSAMINASE LEVEL FINDINGS: LOWER THORAX: There is a small pericardial effusion. HEPATOBILIARY: No focal hepatic lesions. Liver is small measuring 12 cm in the midclavicular line. No mass identified. No biliary ductal dilatation. SPLEEN: No splenomegaly. PANCREAS: No focal masses or ductal dilatation. ADRENALS: No adrenal nodules. KIDNEYS: No hydronephrosis, stones, or solid mass lesions. PERITONEUM / RETROPERITONEUM: No free air or fluid. Partially visualized anterior abdominal wall hernia. LYMPH NODES: No lymphadenopathy. VESSELS: There are splenic varices and a splenorenal shunt. The splenic vein and portal vein are patent. GI TRACT: Visualized portions of the bowel demonstrate no distention or wall thickening. BONES AND SOFT TISSUES: Unremarkable. IMPRESSION: 1. Small liver without evidence of a focal mass. 2. Splenic varices and a splenorenal shunt. 3. Small pericardial effusion. Diego Garcia D.O. Dictated by: Diego Garcia D.O. on 12/08/2018 at 14:59 Electronically approved by: Diego Garcia D.O. on 12/08/2018 at 14:59
== END ==
LOC: CT 12:40
PROVIDERS: ATTEND Specialist
DX: R74.0 Nonspecific elevation of levels of transaminase and lactic acid dehydrogenase [LDH] (principal)
CPT/HCPCS: 74160; Q9967